=== PATIENT | male | born 1995 | race Caucasian/White ===

== ENCOUNTER 2017-02-20 20:01 | Inpatient (IN) | payer BC ==
[2017-02-20] MEDS ORDERED: SODIUM CHLORIDE 0.9% 1,000 ML IV STA ×2 (21:32)
[2017-02-20] MEDS ORDERED: IPRATROPIUM-ALBUTEROL 3 ML NEB INHALATION STA ×2 (21:34→23:34)
[2017-02-20] MEDS ORDERED: ACETAMINOPHEN TAB 500 MG TAB PO STA (21:34)
--- NOTE | 2017-02-20 21:37 | ED ---
SOB HPI - General Chief Complaint: Shortness of Breath Stated Complaint: Low O2 Time Seen by Provider: 02/20/17 21:26 Source: patient Mode of arrival: ambulatory Limitations: no limitations - History of Present Illness Initial Comments: This 21-year-old white male presents with mother the complaint of some shortness of breath. He states onset occurred last evening. He developed a cough with yellowish production. He is had occasional chest tightness as well. He has a T-max of 101. He is seen at the urgent care prior to arrival. They did an x-ray with unknown results. They also gave him a shot of Rocephin as well as 125 mg of Solu-Medrol IM and a breathing treatment. His oxygenation apparently was down to 88% and they recommended coming to the emergency department. They apparently gave him some Aleve this morning as well as a couple of albuterol breathing treatments at home. He denies any other complaints or modifying factors. He does have a history of childhood asthma but this has subsequently resolved. - Related Data Home Medications Medication Instructions Recorded Confirmed No Known Home Medications [No 02/20/17 02/20/17 Known Home Medications] Allergies Allergy/AdvReac Type Severity Reaction Status Date / Time No Known Allergies Allergy Verified 02/20/17 20:55 Review of Systems ROS Statement: Those systems with pertinent positive or pertinent negative responses have been documented in the HPI. ROS Other: All systems not noted in ROS Statement are negative. Past Medical History Past Medical History: No Reported History History of Any Multi-Drug Resistant Organisms: None Reported Past Surgical History: Ear Surgery Past Psychological History: No Psychological Hx Reported Smoking Status: Never smoker Past Alcohol Use History: None Reported Past Drug Use History: None Reported General Exam - General Exam Comments Initial Comments: GENERAL: The patient is well nourished and well hydrated. He is diaphoretic currently. VITAL SIGNS: Heart rate, blood pressure, respiratory rate reviewed as recorded in nurse's notes. EYES: Pupils are round and reactive. Extraocular movements are intact. No conjunctival / lid redness or swelling. ENT: No external evidence of injury, swelling, or ecchymosis. Airway is patent. Throat is clear. NECK: Nontender. No swelling or evidence of injury. No subcutaneous emphysema. Trachea is midline. No thyroid mass. HEART: Regular rate and rhythm. Good peripheral pulses. LUNGS/CHEST: Decreased aeration noted. No rales, rhonchi, or wheezes. No ecchymosis, subcutaneous emphysema, or tenderness. ABDOMEN: Abdomen soft without tenderness. No palpable masses or organomegaly. No peritoneal signs. No abdominal wall swelling or ecchymosis. EXTREMITIES: No extremity tenderness. Normal muscle tone and function. No thoracolumbar tenderness. NEUROLOGIC: Sensation is grossly intact. Cranial nerve exam reveals face is symmetrical, tongue is midline, speech is clear. SKIN: No abrasions or ecchymosis is noted. No induration or masses noted. PSYCHIATRIC: Alert and oriented. Appropriate behavior and judgment. Limitations: no limitations Course Vital Signs 02/20/17 02/20/17 02/20/17 20:43 21:01 21:32 Temperature 101.0 F H Pulse Rate 114 H 107 H 94 Respiratory 22 22 Rate Blood Pressure 120/64 151/79 135/71 O2 Sat by Pulse 91 L 94 L Oximetry 02/20/17 02/20/17 02/20/17 22:02 22:23 22:32 Temperature Pulse Rate 84 108 H 94 Respiratory Rate Blood Pressure 127/70 128/60 O2 Sat by Pulse 95 94 L Oximetry 02/20/17 02/20/17 02/20/17 23:02 23:26 23:27 Temperature 97.9 F Pulse Rate 96 100 Respiratory Rate Blood Pressure 129/68 O2 Sat by Pulse 95 Oximetry Medical Decision Making - Medical Decision Making The patient was seen and examined. All diagnostics were reviewed. His laboratory showed his white blood cell count elevated. The x-ray was read out per radiology is no acute process over upon my evaluation it appears that he may have a right middle lobe infiltrate/pneumonia. He does have a fever and received some Toradol as well as some Tylenol and does defervesce. He received multiple DuoNeb breathing treatments as well as some Levaquin intravenously. While in the room on 2 L of oxygen, his pulse ox does register down to 85% while sleeping and is 92% while awake. Is felt as though he is fairly hypoxic and would require admission for further treatment. Case is discussed with Dr. Villegas and he is agreeable with admission. - Lab Data Result diagrams: 02/20/17 21:11 02/20/17 21:11 Lab Results 02/20/17 02/20/17 02/20/17 Range/Units 21:11 21:11 23:00 WBC 16.3 H (4.0-11.0) k/uL RBC 5.51 (4.30-5.90) m/uL Hgb 16.3 (13.0-17.5) gm/dL Hct 48.5 (39.0-53.0) % MCV 88.1 (80.0-100.0) fL MCH 29.6 (25.0-35.0) pg MCHC 33.6 (31.0-37.0) g/dL RDW 13.8 (11.5-15.5) % Plt Count 220 (150-450) k/uL Neutrophils % 93 % Lymphocytes % 4 % Monocytes % 2 % Eosinophils % 0 % Basophils % 0 % Neutrophils # 15.2 H (1.3-7.7) k/uL Lymphocytes # 0.7 L (1.0-4.8) k/uL Monocytes # 0.3 (0-1.0) k/uL Eosinophils # 0.1 (0-0.7) k/uL Basophils # 0.0 (0-0.2) k/uL Sodium 137 (137-145) mmol/L Potassium 4.0 (3.5-5.1) mmol/L Chloride 103 (98-107) mmol/L Carbon Dioxide 20 L (22-30) mmol/L Anion Gap 14 mmol/L BUN 13 (9-20) mg/dL Creatinine 1.01 (0.66-1.25) mg/dL Est GFR (MDRD) Af Amer >60 (>60 ml/min/1.73 sqM) Est GFR (MDRD) Non-Af >60 (>60 ml/min/1.73 sqM) Glucose 153 H (74-99) mg/dL Calcium 9.8 (8.4-10.2) mg/dL Total Bilirubin 0.6 (0.2-1.3) mg/dL AST 23 (17-59) U/L ALT 40 (21-72) U/L Alkaline Phosphatase 66 (38-126) U/L Total Protein 6.8 (6.3-8.2) g/dL Albumin 4.3 (3.5-5.0) g/dL Urine Color Yellow Urine Appearance Clear (Clear) Urine pH 6.0 (5.0-8.0) Ur Specific [place] 1.009 (1.001-1.035) Urine Protein Negative (Negative) Urine Glucose (UA) Negative (Negative) Urine Ketones 1+ H (Negative) Urine Blood Negative (Negative) Urine Nitrite Negative (Negative) Urine Bilirubin Negative (Negative) Urine Urobilinogen <2.0 (<2.0) mg/dL Ur Leukocyte Esterase Negative (Negative) Disposition Clinical Impression: Pneumonia, Fever, Leukocytosis, Hypoxia Disposition: ADMITTED IP TO THIS HOSP Condition: Fair Referrals: None,Stated [Primary Care Provider] - 1-2 days Time of Disposition: 00:19 Decision Date: 02/21/17 Decision Time: 00:19
[2017-02-20 22:03] LABS: Basophils % (A) 0 %; CH 30.5; CHCM 34.8; Eosinophils # (A) 0.1 k/uL (0-0.7); Eosinophils % (A) 0 %; HCT 48.5 % (39.0-53.0); HDW 2.49; HGB 16.3 gm/dL (13.0-17.5); Luc # (Auto) 0.06; Luc % (Auto) 0; Lymphocytes # (A) 0.7 k/uL (1.0-4.8); Lymphocytes % (A) 4 %; MCH 29.6 pg (25.0-35.0); MCHC 33.6 g/dL (31.0-37.0); MCV 88.1 fL (80.0-100.0); Mean Platelet Volume 7.4; Monocytes # (A) 0.3 k/uL (0-1.0); Monocytes % (A) 2 %; Neutrophils # (A) 15.2 k/uL (1.3-7.7); Neutrophils % (A) 93 %; RBC 5.51 m/uL (4.30-5.90); RDW 13.8 % (11.5-15.5); WBC 16.3 k/uL (4.0-11.0); WBC (Perox) 16.89
[2017-02-20 22:20] LABS: ALT 40 U/L (21-72); AST 23 U/L (17-59); Alkaline Phosphatase 66 U/L (38-126); Anion Gap 14 mmol/L; Blood Urea Nitrogen 13 mg/dL (9-20); Calcium 9.8 mg/dL (8.4-10.2); Carbon Dioxide 20 mmol/L (22-30); Chloride 103 mmol/L (98-107); Glucose 153 mg/dL (74-99); Non-African American GFR(MDRD) >60 (>60 ml/min/1.73 sqM); Sodium 137 mmol/L (137-145); Total Bilirubin 0.6 mg/dL (0.2-1.3); Total Protein 6.8 g/dL (6.3-8.2)
--- NOTE | 2017-02-20 23:02 | XR ---
EXAMINATION TYPE: XR chest 2V DATE OF EXAM: 02/20/2017 COMPARISON: NONE HISTORY: Difficulty breathing TECHNIQUE: Frontal and lateral views of the chest are obtained. FINDINGS: Heart and mediastinum are normal. Lungs are clear. Diaphragm is normal. There are chest le ads. Bony thorax is intact. IMPRESSION: Normal chest
[2017-02-20 23:11] LABS: Appearance,Urine Clear (Clear); Bilirubin,Urine Negative (Negative); Glucose,Urine (UA) Negative (Negative); Ketones,Urine 1+ (Negative); Leukocyte Esterase,Urine Negative (Negative); Nitrite,Urine Negative (Negative); Protein,Urine Negative (Negative); Specific Gravity,Urine 1.009 (1.001-1.035); UA Billing (MACRO vs. MICRO) CHEM; Urobilinogen,Urine <2.0 mg/dL (<2.0)
[2017-02-21] MEDS ORDERED: LEVOFLOXACIN 750MG-D5W PMX 750 MG in DEXTROSE/WATER 1 150ML.BAG IVPB STA (00:19)
[2017-02-21] MEDS ORDERED: IPRATROPIUM-ALBUTEROL 3 ML NEB INHALATION PRN (00:20)
[2017-02-21] MEDS ORDERED: PNEUMONIA PROTOCOL UTILIZED 1 EACH MISC PO PRN (00:20)
[2017-02-21] MEDS ORDERED: ACETAMINOPHEN TAB 500 MG TAB PO PRN (00:22)
[2017-02-21] MEDS ORDERED: KETOROLAC 30 MG/ML 1 ML VIAL IVP PRN (00:23)
[2017-02-21] MEDS ORDERED: methylPREDNISolone SOD SUCCI 125 MG/2 ML VIAL IV STA (00:25)
[2017-02-21] MEDS ORDERED: NALOXONE 0.4 MG/ML 1 ML VIAL IV PRN (01:21)
[2017-02-21] MEDS ORDERED: ACETAMINOPHEN TAB 325 MG TAB PO PRN (01:21)
[2017-02-21] MEDS ORDERED: SODIUM CHLORIDE 0.9% 2,000 ML IV ONE (01:27)
--- NOTE | 2017-02-21 01:30 | P.HPIM ---
History of Present Illness H&P Date: 02/21/17 Chief Complaint: SOA, cough The patient is a 21-year-old male with a past history of asthma as a child with last exacerbation approximately 8 years ago who presents to the ER with chief complaint of sudden onset of shortness of breath productive cough and dyspnea over the last day and a half reports productive green sputum, and exertional dyspnea with subjective fevers chills or night sweats. He denies any recent travel or sick contacts he is a college student. He reports that his asthma has been in remission for several years to the point where he doesn' t even have a rescue inhaler that he uses at home. Apparently the patient presented to urgent care prior to being referred here where he was noted to be hypoxic on room air and he was given breathing treatments, placed on supplemental oxygen a dose of Rocephin and Solu-Medrol. He had a chest x-ray there results are unknown. Post treatment the patient's oxygenation desats to 85 % while asleep and is up to 92% while awake In the ER he had a repeat chest x-ray that showed no intrathoracic disease, his white count was elevated at 16 and his T-max was 101. Review of Systems All other 14 point review of systems are negative except per HPI Past Medical History Past Medical History: No Reported History History of Any Multi-Drug Resistant Organisms: None Reported Past Surgical History: Ear Surgery Past Psychological History: No Psychological Hx Reported Smoking Status: Never smoker Past Alcohol Use History: None Reported Past Drug Use History: None Reported Medications and Allergies Home Medications Medication Instructions Recorded Confirmed Type No Known Home Medications [No 02/20/17 02/20/17 History Known Home Medications] Allergies Allergy/AdvReac Type Severity Reaction Status Date / Time No Known Allergies Allergy Verified 02/20/17 20:55 Physical Exam Vitals: Vital Signs Temp Pulse Resp BP Pulse Ox 02/21/17 00:18 97.6 F 104 H 20 136/63 91 L 02/21/17 00:10 88 02/21/17 00:00 88 02/20/17 23:27 97.9 F 02/20/17 23:26 100 02/20/17 23:02 96 129/68 95 02/20/17 22:32 94 128/60 94 L 02/20/17 22:23 108 H 02/20/17 22:02 84 127/70 95 02/20/17 21:32 94 22 135/71 94 L 02/20/17 21:01 107 H 151/79 02/20/17 20:43 101.0 F H 114 H 22 120/64 91 L Intake and Output 02/20/17 02/20/17 02/21/17 14:59 22:59 06:59 Other: Weight 97.976 kg Patient Weight 02/21/17 06:59 Weight 97.976 kg Constitutional: No acute distress, conversant, pleasant, clammy sweaty Eyes: Anicteric sclerae, moist conjunctiva, no lid-lag, PERRLA ENMT: NC/AT,Oropharynx clear, no erythema, exudates Neck:Supple, FROM, no masses, or JVD, No carotid bruits; No thyromegaly Lungs: Diminished in the bases, Clear to auscultation, Clear to percussion, Normal respiratory effort, no accessory muscle use Cardiovascular: Heart regular in rate and rhythm, No murmurs, gallops, or rubs no peripheral edema Abdominal: Soft Nontender, nom distended, no guarding, no rebound or rigidity, Normoactive bowel sounds No hepatomegaly, No splenomegaly, No palpable mass No abdominal wall hernia noted Skin: Normal temperature, tone, texture, turgor, No induration No subcutaneous nodules, No rash, lesions, No ulcers Extremities:No digital cyanosis No clubbing, Pedal pulses intact and symmetrical Radial pulses intact and symmetrical Normal gait and station, No calf tenderness Psychiatric: Alert and oriented to person, place and time, Appropriate affect Intact judgement Neuro: Muscles Strength 5/5 in all 4 extremities, Sensation to light touch grossly present throughout, Cranial nerves II-XII grossly intact. No focal sensory deficits Results CBC & Chem 7: 02/20/17 21:11 02/20/17 21:11 Labs: Abnormal Lab Results - Last 24 Hours (Table) 02/20/17 02/20/17 02/20/17 Range/Units 21:11 21:11 23:00 WBC 16.3 H (4.0-11.0) k/uL Neutrophils # 15.2 H (1.3-7.7) k/uL Lymphocytes # 0.7 L (1.0-4.8) k/uL Carbon Dioxide 20 L (22-30) mmol/L Glucose 153 H (74-99) mg/dL Urine Ketones 1+ H (Negative) Assessment and Plan (1) Sepsis Status: Acute (2) Acute respiratory failure with hypoxia Status: Acute (3) Acute asthma exacerbation Status: Acute (4) Pneumonia Status: Acute Plan: The patient is a 21-year-old male that is admitted to the medical floor with sepsis secondary to presumptive pneumonia despite his chest x-ray bleeding clear, blood cultures will be checked urinalysis is pending we'll try to obtain sputum cultures will continue empiric IV treatment with IV Levaquin, systemic steroids and scheduled and when necessary bronchodilator breathing treatments. We will hydrate and repeat a chest x-ray to check to see if there is a underlying pneumonia. We'll check urine Legionella and strep and influenza. We'll continue to monitor his clinical course Time with Patient: Greater than 30
[2017-02-21] MEDS: SODIUM CHLORIDE 0.9% 1,000 ML IV SCH ×3 (02:52→17:57)
[2017-02-21] MEDS ORDERED: IPRATROPIUM-ALBUTEROL 3 ML NEB INHALATION SCH (04:00)
[2017-02-21 06:47] LABS: Basophils % (A) 0 %; CH 30.4; CHCM 33.6; Eosinophils % (A) 0 %; HCT 44.2 % (39.0-53.0); HDW 2.48; HGB 14.1 gm/dL (13.0-17.5); Luc # (Auto) 0.03; Luc % (Auto) 0; Lymphocytes # (A) 0.6 k/uL (1.0-4.8); Lymphocytes % (A) 7 %; MCV 90.7 fL (80.0-100.0); Mean Platelet Volume 7.1; Monocytes # (A) 0.1 k/uL (0-1.0); Monocytes % (A) 2 %; Neutrophils # (A) 7.4 k/uL (1.3-7.7); Neutrophils % (A) 91 %; RBC 4.87 m/uL (4.30-5.90); RDW 13.7 % (11.5-15.5); WBC 8.2 k/uL (4.0-11.0); WBC (Perox) 8.08
[2017-02-21 07:02] LABS: Anion Gap 7 mmol/L; Blood Urea Nitrogen 13 mg/dL (9-20); Calcium 8.7 mg/dL (8.4-10.2); Carbon Dioxide 21 mmol/L (22-30); Chloride 110 mmol/L (98-107); Glucose 139 mg/dL (74-99); Non-African American GFR(MDRD) >60 (>60 ml/min/1.73 sqM); Potassium 4.9 mmol/L (3.5-5.1); Sodium 138 mmol/L (137-145)
[2017-02-21] MEDS: methylPREDNISolone SOD SUCCI 125 MG/2 ML VIAL IV SCH ×4 (07:23→23:34)
[2017-02-21] MEDS: ENOXAPARIN 40 MG/0.4 ML SYRINGE SQ SCH (08:09)
--- NOTE | 2017-02-21 13:45 | P.PN ---
Progress Note - Text 21 year old male admitted for acute pneumonia. patient reports recent traveling by plane, he arrived over the weekend, he also admits to sick contact with his brother who got sinusitis. his symptoms started after he arrived to [place]. Reports pleuritic chest pain, trouble breathing and new onset productive cough. I reviewed patient CXR which appears to be normal with no infilterates. I reviewed EKG, and its suspicious for S in lead 1, Q wave in lead 3, and flat t wave in lead 3. given his above history , Im suspecting a possiblity of PE, I will check d dimer pending further recommendations. patient still drops his oxygen level to 90-91 on room air along with tachycardia , however, his lung exam continues to be clear
[2017-02-21 13:48] LABS: Aspergillus fumagatus IgE 0.95 kU/L; Cat Epith & Dander IgE 0.17 kU/L; Cladosporian herbarum IgE <0.10 kU/L; Dermato. farinae IgE <0.10 kU/L; Maple (Box Elder) IgE <0.10 kU/L; Orchard Grs(Cocksfoot) IgE <0.10 kU/L; Ragweed,Common IgE <0.10 kU/L
[2017-02-21] MEDS: LEVOFLOXACIN 750MG-D5W PMX 750 MG in DEXTROSE/WATER 1 150ML.BAG IVPB SCH (23:35)
[2017-02-22] MEDS: SODIUM CHLORIDE 0.9% 1,000 ML IV SCH ×3 (02:30→19:49)
[2017-02-22] MEDS: methylPREDNISolone SOD SUCCI 125 MG/2 ML VIAL IV SCH ×4 (06:03→23:08)
[2017-02-22] MEDS: ENOXAPARIN 40 MG/0.4 ML SYRINGE SQ SCH (07:49)
--- NOTE | 2017-02-22 08:02 | XR ---
EXAMINATION TYPE: XR chest 2V DATE OF EXAM: 02/22/2017 COMPARISON: Chest x-ray from 2 days ago. HISTORY: History of asthma and prior pneumonia with shortness of breath. TECHNIQUE: Frontal and lateral views of the chest are obtained. FINDINGS: Somewhat low lung volumes redemonstrated. There is no focal air space opacity, pleural eff usion, or pneumothorax seen. The cardiac silhouette size is within normal limits. The osseous stru ctures are intact. IMPRESSION: No suspicious acute pulmonary process. No significant change from prior.
[2017-02-22 10:03] LABS: Basophils % (A) 0 %; CH 29.3; CHCM 32.1; Eosinophils % (A) 0 %; HCT 46.1 % (39.0-53.0); HDW 2.52; HGB 15.3 gm/dL (13.0-17.5); Luc # (Auto) 0.07; Luc % (Auto) 0; Lymphocytes # (A) 1.2 k/uL (1.0-4.8); Lymphocytes % (A) 7 %; MCH 30.4 pg (25.0-35.0); MCHC 33.1 g/dL (31.0-37.0); MCV 91.6 fL (80.0-100.0); Mean Platelet Volume 7.3; Monocytes # (A) 0.5 k/uL (0-1.0); Monocytes % (A) 3 %; Neutrophils # (A) 17.2 k/uL (1.3-7.7); Neutrophils % (A) 90 %; RBC 5.03 m/uL (4.30-5.90); RDW 12.9 % (11.5-15.5)
[2017-02-22 10:32] LABS: Anion Gap 13 mmol/L; Blood Urea Nitrogen 11 mg/dL (9-20); Calcium 9.2 mg/dL (8.4-10.2); Carbon Dioxide 20 mmol/L (22-30); Chloride 109 mmol/L (98-107); Glucose 135 mg/dL (74-99); Non-African American GFR(MDRD) >60 (>60 ml/min/1.73 sqM); Potassium 3.7 mmol/L (3.5-5.1); Sodium 142 mmol/L (137-145)
--- NOTE | 2017-02-22 16:55 | P.PN ---
Subjective Principal diagnosis: acute asthmatic bronchitis A 21 y.o WM visiting from [place]. He presented with shortness of breath and cough with hypoxemia. He was admitted with asthma attack exacerbation with infection however his chest x-ray 2 done and were negative for any infiltrate. He feels a lot better without any acute cough or shortness of breath he denied chest pain dizziness or palpitations no cough or expectoration or hemoptysis no other complaints offered I discussed this case with his mother and planning discharge in a.m. Systemic review of [employer] genitourinary cardiac musculoskeletal and GI systems were negative for any acute complaints Objective - Vital Signs Vital signs: Vital Signs Temp 96.5 F L 02/22/17 15:00 Pulse 86 02/22/17 15:00 Resp 16 02/22/17 15:00 BP 111/58 02/22/17 15:00 Pulse Ox 93 L 02/22/17 15:00 Intake & Output 02/21/17 02/22/17 02/22/17 18:59 06:59 18:59 Intake Total 200 700 Balance 200 700 Intake: Intake, IV Titration 200 Amount Sodium Chloride 0.9% 1, 200 000 ml @ 120 mls/hr IV . Q8H20M [facility] Rx#:[id number] Oral 700 Other: Voiding Method Toilet Toilet # Voids 1 2 # Bowel Movements 1 - Constitutional General appearance: Present: average body habitus, cooperative, no acute distress - EENT Eyes: Present: anicteric sclerae, EOMI, PERRLA, dentition normal, normal appearance ENT: Present: hearing grossly normal, normal oropharynx. Absent: thrush, tonsillar exudates, tonsillar swelling - Neck Neck: Absent: lymphadenopathy, normal ROM, other, rigidity, stridor, thyromegaly Carotids: bilateral: upstroke normal, bruit absent Thyroid: negative: normal size, enlarged, firm, nodule - Respiratory Respiratory: bilateral: CTA, rhonchi, prolonged expiration, negative: diminished , dullness, wheezing, prolonged inspiration - Cardiovascular Rhythm: regular Heart sounds: normal: S1, S2 Abnormal Heart Sounds: Absent: systolic murmur, diastolic murmur, rub, S3 Gallop , S4 Gallop, click, other - Gastrointestinal General gastrointestinal: Present: normal bowel sounds, soft. Absent: absent bowel sounds, decreased bowel sounds, distended, hepatomegaly, hyperactive bowel sounds, organomegaly, rigid, scaphoid, splenomegaly, tenderness, umbilical hernia, ventral hernia - Integumentary Integumentary: Absent: calor, cellulitis, cyanotic, decreased turgor, flushed, jaundiced, normal, normal turgor, pale, rash, ulcer - Neurologic Neurologic: Present: CNII-XII intact, focal deficits - Musculoskeletal Musculoskeletal: Present: gait normal, strength equal bilaterally. Absent: generalized weakness, right sided weakness, left sided weakness - Psychiatric Psychiatric: Present: A&O x's 3, appropriate affect, intact judgment & insight - Allied health notes Allied health notes reviewed: nursing - Labs CBC & Chem 7: 02/22/17 09:06 02/22/17 09:06 Labs: Abnormal Lab Results - Last 24 Hours (Table) 02/22/17 02/22/17 Range/Units 09:06 09:06 WBC 19.0 H (4.0-11.0) k/uL Neutrophils # 17.2 H (1.3-7.7) k/uL Chloride 109 H (98-107) mmol/L Carbon Dioxide 20 L (22-30) mmol/L Glucose 135 H (74-99) mg/dL Microbiology - Last 24 Hours (Table) 02/20/17 21:11 Blood Culture - Preliminary Blood No Growth after 24 hours - Imaging and Cardiology Chest x-ray: report reviewed, image reviewed Assessment and Plan (1) Acute asthma exacerbation Narrative/Plan: Negative CXR contginue iv levaquin Status: Acute (2) Acute respiratory failure with hypoxia Narrative/Plan: resolved, normal o2 sat% continue AB's, bronchodilater therapy and steroids Status: Acute (3) Leukocytosis Narrative/Plan: WBC's = 11893 secondary to steroid repeat in amtherapy Status: Acute (4) Sepsis Narrative/Plan: resolved hypoxemia resolved cxr is negativev x 2 Status: Acute (5) Acute bronchiolitis Narrative/Plan: cxr is negative , no pneumonia currently on Levaquin respondind well Plan d/c in am Status: Acute Plan: plan disgharge in am Time with Patient: Less than 30
[2017-02-22] MEDS: LEVOFLOXACIN 750MG-D5W PMX 750 MG in DEXTROSE/WATER 1 150ML.BAG IVPB SCH (23:08)
[2017-02-23] MEDS: SODIUM CHLORIDE 0.9% 1,000 ML IV SCH (06:24)
[2017-02-23] MEDS: methylPREDNISolone SOD SUCCI 125 MG/2 ML VIAL IV SCH ×2 (06:24→12:26)
[2017-02-23] MEDS: ENOXAPARIN 40 MG/0.4 ML SYRINGE SQ SCH (08:53)
[2017-02-23 14:51] VITALS: BP 133/70; PULSE 75; RESP 16; TEMP 97
[2017-02-23] MEDS ORDERED: ALBUTEROL INHALER 60 PUFF/8 GM INHALER INHALATION PRN (15:33)
--- NOTE | 2017-02-23 15:45 | P.DS ---
Providers Date of admission: 02/21/17 00:20 Expected date of discharge: 02/23/17 Attending physician: Chapincito Villegas MD Primary care physician: Stated None - Discharge Diagnosis(es) (1) Acute asthma exacerbation Admitted for increasing SOB x 1 day duration , no preceeded URTI Had fever , leukocytosis, hypoxia with early sepsis and abn chest exam with Asthmatic exacerbation XCR was negative Responded to O2 , Levaquin and bronchodilater therapy and stweroids which raised his WBC count Blood c/s : negative Today he was asymptomatic with clear chest No Resp distress Stable to go home Current Visit: Yes Status: Acute Priority: High Onset Date: ~02/21/17 (2) Acute respiratory failure with hypoxia Current Visit: Yes Status: Acute Priority: High Onset Date: ~02/21/17 (3) Leukocytosis due to iv steroids Current Visit: Yes Status: Acute Priority: High Onset Date: ~02/21/17 (4) Sepsis early with fever ,tachycardia hypoxemia Resolved Current Visit: Yes Status: Acute Priority: High Onset Date: ~02/21/17 (5) Acute bronchiolitis on AB;s with good response XCR x 2 : no pneumonia Current Visit: Yes Status: Acute Priority: High Onset Date: ~02/21/17 Patient Condition at Discharge: Fair Plan - Discharge Summary New Discharge Prescriptions: No Action No Known Home Medications [No Known Home Medications] Discharge Medication List No Known Home Medications [No Known Home Medications] 02/20/17 [History] Follow up Appointment(s)/Referral(s): None,Stated [Primary Care Provider] - 1 Week Patient Instructions/Handouts: Asthma (DC) Activity/Diet/Wound Care/Special Instructions: Regular diet. Limited activity till follow up. Discharge Disposition: HOME SELF-CARE
[2017-02-23] MEDS ORDERED: LEVOFLOXACIN 750 MG TAB PO SCH (21:00)
[2017-02-24] MEDS ORDERED: methylPREDNISolone 4 MG TAB TAPER PO SCH (09:00)
--- NOTE | 2017-02-27 12:53 | CDI ---
In responding to this query, please exercise your independent professional judgment. The [facility] Coding Staff and Clinical Documentation Specialists appreciate your assistance in clarifying documentation, maintaining compliance with coding guidelines, accurately documenting patients condition and capturing severity of illness. The fact that a question is asked does not imply that any particular answer is desired or expected. Communication forms are a method of clarifying documentation and are not made part of the Legal Health Record. Thank you in advance for your clarification. Last Revision, July 2015 Nadine Carter [address] [place] [address] Documentation Clarification Form Date: 02/27/2017 12:30:00 PM From: Janina Turner Phone: Admit Date: 02/21/2017 12:20:00 AM Patient Name: Jose E Schmidt I Visit Number: [id number] Discharge Date: Dr. Patrice Pendleton Acute asthma exacerbation is documented in the H&P, progress notes and discharge summary. Patient history/risk factors: Patient has a history of asthma as a child with last exacerbation approxiemately 8 years ago. Clinical Indicators: Sudden shortness of breath, productive cough and dyspnea. Patient reported to urgent care prior to admission and was hypoxic and was given breathing treatments, a does of Rocephin and Solu-Medrol. Radiology: Chest x-ray 02/20: Normal chest. Chest x-ray 02/22: No suspicious acute pulmonary process. No significant change from prior. Vital Signs: T. 101.0, P. 97, R. 22, BP 126/65, Pulse ox. 91 Other Clinical Indicators: Patient also had acute bronchiolitis per discharge summary. Treatment: Duoneb treatments, IV Solu-Medrol In your professional opinion, can you please further specify the following, if known? Severity Mild intermittent Mild persistent Moderate persistent Severe persistent Other, please specify ____ Unable to determine Form or Type Cough variant Childhood Exercise induced bronchospasm Extrinsic allergic Idiosyncratic Intrinsic nonallergic Late-onset Mixed Other, please specify Unable to determine Please document in your discharge summary in order to capture severity of illness and risk of mortality. Include clinical findings that support your diagnosis. FYI: Press F11 to launch patient chart. If you have a question about this query, please contact Polly Tinoco coding clerk at [phone] between 8am and 5pm. MTDD
[2017-02-27 13:58] LABS: S.pneumoniae Serotype 1 (1) 8.5 mcg/mL (>=2.3); S.pneumoniae Serotype 10A (34) 1.1 mcg/mL (>=2.9); S.pneumoniae Serotype 12F (12) 0.1 mcg/mL (>=0.6); S.pneumoniae Serotype 14 (14) 1.2 mcg/mL (>=7.0); S.pneumoniae Serotype 15B (54) 0.6 mcg/mL (>=3.3); S.pneumoniae Serotype 18C (56) 0.2 mcg/mL (>=3.3); S.pneumoniae Serotype 19A (57) 0.8 mcg/mL (>=17.1); S.pneumoniae Serotype 19F (19) 8.6 mcg/mL (>=15.0); S.pneumoniae Serotype 2 (2) 1.9 mcg/mL (>=1.0); S.pneumoniae Serotype 20 (20) 0.2 mcg/mL (>=1.3); S.pneumoniae Serotype 22F (22) 3.4 mcg/mL (>=7.2); S.pneumoniae Serotype 23F (23) 6.8 mcg/mL (>=8.0); S.pneumoniae Serotype 3 (3) 0.5 mcg/mL (>=1.8); S.pneumoniae Serotype 4 (4) 0.3 mcg/mL (>=0.6); S.pneumoniae Serotype 5 (5) <0.3 mcg/mL (>=10.7); S.pneumoniae Serotype 6B (26) 1.4 mcg/mL (>=4.7); S.pneumoniae Serotype 8 (8) 0.3 mcg/mL (>=2.9); S.pneumoniae Serotype 9N (9) 1.3 mcg/mL (>=9.2); S.pneumoniae Serotype 9V (68) 4.1 mcg/mL (>=2.6)
== END 2017-02-23 16:46 | disposition home or self-care (01) | DRG 871 ==
LOC: EC 20:01 → 4MS4W 02-21 00:20
PROVIDERS: ADMIT Family Medicine; ATTEND Family Medicine
DX: A41.9 Sepsis, unspecified organism (principal); J96.01 Acute respiratory failure with hypoxia; J21.9 Acute bronchiolitis, unspecified; J45.901 Unspecified asthma with (acute) exacerbation; D72.829 Elevated white blood cell count, unspecified; T38.0X5A Adverse effect of glucocorticoids and synthetic analogues, initial encounter
CPT/HCPCS: 36415; 71020; 80048; 80053; 81003; 82785; 83605; 85025; 85379; 86003; 86317; 87040; 87449; 87502; 93005; 94640; 94760; 96361; 96365; 96366; 96372; 96375; 96376; 99285

== ENCOUNTER 2017-12-22 21:40 | Emergency (ER) | payer BC, OTHER ==
[2017-12-22 22:19] VITALS: RESP 18
--- NOTE | 2017-12-22 22:55 | ED ---
General Adult HPI - General Chief complaint: Wound/Laceration Stated complaint: Finger laceration Time Seen by Provider: 12/22/17 22:35 Source: patient Mode of arrival: ambulatory - History of Present Illness Initial comments: 21-year-old male presenting with laceration to the left second digit. Patient states he was making hollowpoint bullets when he missed and struck his finger with a knife. States since then he's been having pain and bleeding. States he is right-handed and his last tetanus shot was in April. Denies any other injury. - Related Data Home Medications Medication Instructions Recorded Confirmed Albuterol Inhaler [Ventolin Hfa 1 - 2 puff INHALATION RT-Q6H PRN 12/22/17 Inhaler] Levocetirizine Dihydrochloride 5 mg PO HS 12/22/17 12/22/17 [Xyzal] Previous Rx's Medication Instructions Recorded Ibuprofen [Motrin] 600 mg PO Q8HR PRN #30 tab 12/23/17 Allergies Allergy/AdvReac Type Severity Reaction Status Date / Time No Known Allergies Allergy Verified 12/22/17 22:41 Review of Systems ROS Statement: Those systems with pertinent positive or pertinent negative responses have been documented in the HPI. Review of Systems Constitutional: Denies fever, chills Eyes: Denies change in vision, Denies pain Ears, nose, mouth, throat: Denies headaches, Denies sore throat Cardiovascular: Denies chest pain. Denies palpitations Respiratory: Denies shortness of breath, Denies cough Gastrointestinal: Denies abdominal pain. Denies nausea, vomiting, diarrhea. Genitourinary: Denies hematuria, Denies infections Musculoskeletal: Denies pain, Denies swelling Integumentary: Positive wound Neurological: Denies headache, focal weakness, focal numbness Psychiatric: Denies anxiety, Denies depression Hematologic/Lymphatic: Denies easy bleeding or bruising ROS Other: All systems not noted in ROS Statement are negative. Past Medical History Past Medical History: Asthma, Pneumonia Additional Past Medical History / Comment(s): Childhood asthma, mononucleosis, hypoglycemia, frequent migraines. History of Any Multi-Drug Resistant Organisms: None Reported Past Surgical History: Ear Surgery Additional Past Surgical History / Comment(s): Bilateral myringotomy/tubes. Past Anesthesia/Blood Transfusion Reactions: No Reported Reaction Past Psychological History: No Psychological Hx Reported Smoking Status: Never smoker Past Alcohol Use History: None Reported Past Drug Use History: None Reported - Past Family History Mother Family Medical History: Asthma, Hypertension Father Family Medical History: Hypertension Additional Family Medical History / Comment(s): Father in a work related MVA. General Exam - General Exam Comments Initial Comments: General: Awake, alert, No acute Distress HENT: Normocephalic. Atraumatic Eyes: PERRL. EOMI. No scleral icterus. No injected conjunctiva Neck: Full ROM Chest/Lungs: Clear to auscultation bilaterally. No wheezing, rhonchi, or rales Cardiac: Regular rate, rhythm. No murmurs or rubs Abdomen/GI: Soft, nontender, nondistended. No rebound, guarding, or rigidity. Musculoskeletal: Full ROM Skin: Warm, dry. 1 cm avulsion laceration to the medial aspect of the left second digit lateral to the nail. Mild bleeding. Sensation intact. Full range of motion. Neurologic: A/Ox3, no weakness, no sensory deficit, no abnormal gait, no coordination deficit Course Vital Signs 12/22/17 12/23/17 22:14 00:25 Temperature 98.8 F 98.1 F Pulse Rate 68 66 Respiratory 18 18 Rate Blood Pressure 148/81 145/86 O2 Sat by Pulse 98 98 Oximetry Procedures - Laceration Laceration #1 Indication: laceration Site: upper extremity Size (cm): 1 Description: flap Depth: simple, single layer Anesthetic Used: benzocaine 0.25% Anesthesia Technique: local infiltration Pre-repair: irrigated extensively Size of Sutures: 5-0 Number of Sutures: 2 Technique: simple, interrupted Patient Tolerated Procedure: well - Nerve Block Consent Obtained: verbal consent Time Out Performed: Yes Local Anesthetic Used: Marcaine 0.5% Side: left Nerve Blocks: radial Procedure Successful: Yes Complications: pain with procedure Patient Tolerated Procedure: well Medical Decision Making - Medical Decision Making 21-year-old male presenting with laceration to left finger. Initial exam the patient is awake, alert, no acute distress. VSS. Laceration itself was not deep and was more of a flap on the medial aspect of the finger. There is no evidence of foreign body was not deep enough to have a hidden foreign body.. Patient's tetanus is up-to-date. 2 sutures were placed to close the flap over the wound area. No indication for antibiotics. He was instructed to return the emergency Department or see his primary Care physician in 7-10 days for suture removal.No further emergent workup indicated. The patient was given return to ED instructions. They were instructed to follow up with their primary care provider. Stable for discharge at this time. Disposition Clinical Impression: Laceration of left index finger Disposition: HOME SELF-CARE Condition: Good Instructions: Care For Your Stitches (ED), Laceration (ED) Additional Instructions: Follow-up with her primary care physician of this department in 7-10 days for suture removal. If any foul-smelling drainage or fever occurs return to the emergency department. Prescriptions: Ibuprofen [Motrin] 600 mg PO Q8HR PRN #30 tab PRN Reason: Pain Is patient prescribed a controlled substance at d/c from ED?: No Referrals: None,Stated [Primary Care Provider] - 1-2 days Bart Hennessy MD [STAFF PHYSICIAN] - 1-2 days
[2017-12-23 00:26] VITALS: BP 145/86; PULSE 66; TEMP 98.1
== END 2017-12-23 00:25 | disposition home or self-care (01) ==
LOC: EC 21:40
DX: S61.211A Laceration without foreign body of left index finger without damage to nail, initial encounter (principal); J45.909 Unspecified asthma, uncomplicated; Z79.899 Other long term (current) drug therapy; W26.0XXA Contact with knife, initial encounter; Y93.89 Activity, other specified
CPT/HCPCS: 12001; 99282

== ENCOUNTER 2022-05-04 22:52 | Emergency (ER) | payer OTHER ==
[2022-05-04 23:21] VITALS: TEMP 98.4
[2022-05-05] MEDS ORDERED: FLUORESCEIN STRIPS 1 MG STRIP BOTH EYES ONE (01:17)
[2022-05-05] MEDS ORDERED: PROPARACAINE 0.5% OPHTH DROPS 15 ML BTL BOTH EYES STA (01:17)
[2022-05-05] MEDS ORDERED: SULFACETAMIDE SOD 10% OPHTH DROPS 15 ML BTL BOTH EYES ONE (01:17)
--- NOTE | 2022-05-05 02:00 | ED ---
Eye Problem HPI - General Chief complaint: Allergic Reaction Stated complaint: allergic reaction, carb pillowcase cleaner in eyes Time Seen by Provider: 05/05/22 00:57 Source: patient, family, RN notes reviewed Mode of arrival: ambulatory Limitations: no limitations - History of Present Illness Initial comments: This is a 26-year-old male who presents to the emergency department for eye problems. When he was at work, he was cleaning out a car, and when he was doing work on the car the carb pillowcase cleaner accidentally shot up and hit him in the face and both of his eyes. He tried rinsing his eyes, but states that he had difficulty with this due to his greasy hands. Reports itching and pain to the eyes as well as blurring of the vision. He felt like his face was swollen initially, however this has since resolved. Denies any fevers, chills, sore throat, cough, dyspnea, chest pain, palpitations, abdominal pain, nausea, vomiting, diarrhea, back pain, or headaches. MD chief complaint: eye pain, vision change Location: both eyes Place: work If Injury: chemical exposure Eye Symptoms: burning, pain, itching, blurry vision Associated Symptoms: none Treatments Prior to Arrival: irrigated eye - Related Data Home Medications Medication Instructions Recorded Confirmed Albuterol Inhaler [Ventolin Hfa 1 - 2 puff INHALATION RT-Q6H PRN 12/22/17 12/22/17 Inhaler] Levocetirizine Dihydrochloride 5 mg PO HS 12/22/17 12/22/17 [Xyzal] Previous Rx's Medication Instructions Recorded Ibuprofen [Motrin] 600 mg PO Q8HR PRN #30 tab 12/23/17 Allergies Allergy/AdvReac Type Severity Reaction Status Date / Time No Known Allergies Allergy Verified 05/04/22 23:21 Review of Systems ROS Statement: Those systems with pertinent positive or pertinent negative responses have been documented in the HPI. ROS Other: All systems not noted in ROS Statement are negative. Past Medical History Past Medical History: Asthma, Pneumonia Additional Past Medical History / Comment(s): Childhood asthma, mononucleosis, hypoglycemia, frequent migraines. History of Any Multi-Drug Resistant Organisms: None Reported Past Surgical History: Ear Surgery Additional Past Surgical History / Comment(s): Bilateral myringotomy/tubes. Past Anesthesia/Blood Transfusion Reactions: No Reported Reaction Past Psychological History: No Psychological Hx Reported Smoking Status: Current every day smoker, Vaper Past Alcohol Use History: None Reported Past Drug Use History: None Reported - Past Family History Mother Family Medical History: Asthma, Hypertension Father Family Medical History: Hypertension Additional Family Medical History / Comment(s): Father in a work related MVA. General Exam Limitations: no limitations General appearance: alert, in no apparent distress Head exam: Present: atraumatic, normocephalic, normal inspection Eye exam: Present: PERRL, EOMI, conjunctival injection, other (No lesions or erythema to the eyelids.). Absent: periorbital swelling, periorbital tenderness Pupils: Present: normal accommodation Respiratory exam: Present: normal lung sounds bilaterally. Absent: respiratory distress, wheezes, rales, rhonchi, stridor Cardiovascular Exam: Present: regular rate, normal rhythm, normal heart sounds. Absent: systolic murmur, diastolic murmur, rubs, gallop, clicks Neurological exam: Present: alert, oriented X3, CN II-XII intact Psychiatric exam: Present: normal affect, normal mood Skin exam: Present: warm, dry, intact, normal color. Absent: rash Course Vital Signs 05/04/22 05/05/22 23:13 03:20 Temperature 98.4 F Pulse Rate 77 88 Respiratory 18 14 Rate Blood Pressure 140/89 143/89 O2 Sat by Pulse 99 Oximetry Medical Decision Making - Medical Decision Making This is a 26-year-old male who presents to the emergency department for chemical constantino to the eyes. Both of his eyes were irrigated with a liter of normal saline via Sixto lens. Patient noted significant symptomatic relief following irrigation. PH strips were used following irrigation and found to be approximately 7.0. He was given sulfacetamide eyedrops in the emergency department, and advised to use 2 drops in both eyes 4 times daily for 5 days. Advised ibuprofen and Tylenol for pain relief. Information for ophthalmology follow-up was provided as well. Return precautions reviewed in depth, the patient is instructed to return to the emergency department with any new, worsening, or concerning symptoms. Patient verbalized understanding. This case was discussed in detail with the attending ED physician. Presentation, findings, and treatment plan discussed in detail as well. Disposition Clinical Impression: Chemical burn of left eye, Chemical burn of right eye Disposition: HOME SELF-CARE Instructions (If sedation given, give patient instructions): Chemical Eye Constantino (ED) Additional Instructions: Return to the emergency department with any new, worsening, or concerning symptoms. Use the eye drops as 2 drops in both eyes 4 times daily for 5 days. Alternate with ibuprofen and Tylenol for pain relief. Contact ophthalmology as listed below for a follow-up appointment. Follow up with your primary care provider in 1-2 days. Is patient prescribed a controlled substance at d/c from ED?: No Referrals: [facility],Clinic [Primary Care Provider] - 1-2 days Xi Howell MD [STAFF PHYSICIAN] - 1-2 days
[2022-05-05 03:20] VITALS: BP 143/89; PULSE 88; RESP 14
== END 2022-05-05 03:20 | disposition home or self-care (01) ==
LOC: EC 22:52
DX: T26.92XA Corrosion of left eye and adnexa, part unspecified, initial encounter (principal); T26.91XA Corrosion of right eye and adnexa, part unspecified, initial encounter; T65.91XA Toxic effect of unspecified substance, accidental (unintentional), initial encounter; J45.909 Unspecified asthma, uncomplicated; F17.200 Nicotine dependence, unspecified, uncomplicated; F17.290 Nicotine dependence, other tobacco product, uncomplicated
CPT/HCPCS: 99283

== ENCOUNTER 2022-06-14 12:59 | Emergency (ER) | payer OTHER ==
[2022-06-14 13:19] VITALS: RESP 18
--- NOTE | 2022-06-14 14:42 | XR ---
EXAMINATION TYPE: XR chest 2V DATE OF EXAM: 06/14/2022 2:33 PM COMPARISON: Chest radiographs from 02/22/2017. TECHNIQUE: XR chest 2V Frontal and lateral views of the chest. CLINICAL INDICATION:Male, 26 years old with history of Cough; FINDINGS: Lungs/Pleura: There is no evidence of pleural effusion, focal consolidation, or pneumothorax. Pulmonary vascularity: Unremarkable. Heart/mediastinum: Cardiomediastinal silhouette is unremarkable. Musculoskeletal: No acute osseous pathology. IMPRESSION: No acute cardiopulmonary disease/process.
--- NOTE | 2022-06-14 14:57 | ED ---
URI HPI - General Chief Complaint: Upper Respiratory Infection Stated Complaint: coughing up blood Time Seen by Provider: 06/14/22 13:58 Source: patient, RN notes reviewed Mode of arrival: ambulatory Limitations: no limitations - History of Present Illness Initial Comments: This is a 26-year-old male who presents to the emergency department for coughing. States that this started 2 weeks ago and has persisted. Yesterday when he was coughing, he noticed a couple of spots of blood in the sink. This happened a few times and has since stopped. Denies any associated fevers, chest pain, or shortness of breath. He states that he does vape on a daily basis. Denies any fevers, chills, sore throat, dyspnea, chest pain, palpitations, abdominal pain, nausea, vomiting, diarrhea, back pain, or headaches. MD Complaint: cough, nasal congestion Onset/Timin -: week(s) - Related Data Home Medications Medication Instructions Recorded Confirmed Albuterol Inhaler [Ventolin Hfa 1 - 2 puff INHALATION RT-Q6H PRN 12/22/17 0 12/22/17 Inhaler] Levocetirizine Dihydrochloride 5 mg PO HS 12/22/17 12/22/17 [Xyzal] Previous Rx's Medication Instructions Recorded Ibuprofen [Motrin] 600 mg PO Q8HR PRN #30 tab 12/23/17 Azithromycin [Zithromax] 250 mg PO DIRECTED 5 Days #6 tab 06/14/22 Promethazine/Dextromethorphan 5 ml PO Q4-6H PRN #473 ml 06/14/22 [Promethazine-Dm Syrup] predniSONE 50 mg PO DAILY 5 Days #5 tab 06/14/22 Allergies Allergy/AdvReac Type Severity Reaction Status Date / Time meloxicam Allergy Anaphylaxis Verified 06/14/22 13:20 Review of Systems ROS Statement: Those systems with pertinent positive or pertinent negative responses have been documented in the HPI. ROS Other: All systems not noted in ROS Statement are negative. Past Medical History Past Medical History: Asthma, Pneumonia Additional Past Medical History / Comment(s): Childhood asthma, mononucleosis, hypoglycemia, frequent migraines. History of Any Multi-Drug Resistant Organisms: None Reported Past Surgical History: Ear Surgery Additional Past Surgical History / Comment(s): Bilateral myringotomy/tubes. Past Anesthesia/Blood Transfusion Reactions: No Reported Reaction Past Psychological History: Anxiety, Depression Smoking Status: Current every day smoker, Vaper Past Alcohol Use History: None Reported Past Drug Use History: None Reported - Past Family History Mother Family Medical History: Asthma, Hypertension Father Family Medical History: Hypertension Additional Family Medical History / Comment(s): Father in a work related MVA. General Exam Limitations: no limitations General appearance: alert, in no apparent distress Head exam: Present: atraumatic, normocephalic, normal inspection Eye exam: Present: normal appearance, PERRL, EOMI. Absent: scleral icterus, conjunctival injection, periorbital swelling ENT exam: Present: normal oropharynx, mucous membranes moist, TM's normal bilaterally, normal external ear exam Respiratory exam: Present: normal lung sounds bilaterally. Absent: respiratory distress, wheezes, rales, rhonchi, stridor Cardiovascular Exam: Present: regular rate, normal rhythm, normal heart sounds. Absent: systolic murmur, diastolic murmur, rubs, gallop, clicks Neurological exam: Present: alert, oriented X3, CN II-XII intact Psychiatric exam: Present: normal affect, normal mood Skin exam: Present: warm, dry, intact, normal color. Absent: rash Course Vital Signs 06/14/22 06/14/22 13:16 15:20 Temperature 98.2 F 98.4 F Pulse Rate 105 H 78 Respiratory 18 18 Rate Blood Pressure 133/81 128/77 O2 Sat by Pulse 100 98 Oximetry Medical Decision Making - Medical Decision Making This is a 26-year-old male who presents to the emergency department for a cough. Was pt. sent in by a medical professional or institution? @ -No Did you speak to anyone other than the patient for history? @ -No Did you review nursing and triage notes? @ -Agree, accurate with regards to the patient's symptoms. Were old charts reviewed? @ -No Differential Diagnosis? @ -Influenza, Covid, allergic rhinitis, GERD, pneumonia, bronchitis, COPD, viral pharyngitis, streptococcal pharyngitis, this is not meant to be an all- inclusive list. X-rays interpreted by me (1pt min.)? @ --Chest x-ray obtained, my interpretation identifies no localized consolidations or infiltrates. What testing was considered but not performed? (CT, X-rays, U/S, labs)? Why? @ -None What meds were considered but not given? Why? @ -None Did you discuss the management of the patient with other professionals? @ -No Did you reconcile home meds? @ -No Was smoking cessation discussed for >3mins.? @ -No Was critical care preformed (if so, how long)? @ -No Were there social determinants of health that impacted care today? How? (Homelessness, low income, unemployed, alcoholism, drug addiction, transportation, low edu. Level, literacy, decrease access to med. care, snf, rehab)? @ -No Was there de-escalation of care discussed even if they declined? (Discuss DNR or withdrawal of care, Hospice)? @ -No What co-morbidities impacted this encounter? (DM, HTN, Smoking, COPD, CAD, Cancer, CVA, Hep., AIDS, mental health diagnosis, sleep apnea, morbid obesity)? @ -Vaping, hx of asthma Was patient admitted / discharged? @ -Discharged. Chest x-ray obtained revealing no acute abnormalities. Patient negative for Covid, influenza, and RSV. Advised that the small tinge of blood is likely from all of the coughing that he has been doing, eventually causing irritation. Because he is not coughing up large amounts of blood and because this has since resolved, no further workup in this regard is necessary at this time. Given that symptoms have been present for a week at this point, will go ahead and treatment him with a course of antibiotics. Prescription for Z-Walter provided with dosing instructions reviewed. Additionally, for symptomatic management, rx for prednisone and promethazine DM cough syrup provided with dosing instructions reviewed. He is advised that the cough medication can be sedating and he should take it at night until he knows it affects him. Undiagnosed new problem with uncertain prognosis? @ -None Drug Therapy requiring intensive monitoring for toxicity (Heparin, Nitro, Insulin, Cardizem)? @ -None Were any procedures done? @ -None Diagnosis/symptom? @ -Bronchitis Acute, or Chronic, or Acute on Chronic? @ -Acute Uncomplicated (without systemic symptoms) or Complicated (systemic symptoms)? @ -Uncomplicated Side effects of treatment? @ -None Exacerbation, Progression, or Severe Exacerbation] @ -Not applicable Poses a threat to life or bodily function? @ -No Return precautions reviewed in depth, the patient is instructed to return to the emergency department with any new, worsening, or concerning symptoms. Patient verbalized understanding. This case was discussed in detail with the attending ED physician, Dr. Segura. Presentation, findings, and treatment plan discussed in detail as well. - Lab Data Lab Results 06/14/22 Range/Units 14:07 Influenza Type A (PCR) Not Detected (Not Detectd) Influenza Type B (PCR) Not Detected (Not Detectd) RSV (PCR) Not Detected (Not Detectd) SARS-CoV-2 (PCR) Not Detected (Not Detectd) - Radiology Data Radiology results: report reviewed, image reviewed Disposition Clinical Impression: Bronchitis Disposition: HOME SELF-CARE Instructions (If sedation given, give patient instructions): Acute Bronchitis (ED) Additional Instructions: Return to the emergency department with any new, worsening, or concerning symptoms. Take the antibiotic as prescribed for 5 days. Take the Prednisone daily for 5 days. You can take the cough medicine every 4-6 hours as needed, however this may make you drowsy and you should take it at night until you know how it affects you. Follow up with your primary care provider in 1-2 days. Prescriptions: predniSONE 50 mg PO DAILY 5 Days #5 tab Promethazine/Dextromethorphan [Promethazine-Dm Syrup] 5 ml PO Q4-6H PRN #473 ml PRN Reason: Cough Azithromycin [Zithromax] 250 mg PO DIRECTED 5 Days #6 tab Is patient prescribed a controlled substance at d/c from ED?: No Referrals: [facility],Clinic [Primary Care Provider] - 1-2 days
[2022-06-14 15:20] VITALS: BP 128/77; PULSE 78; TEMP 98.4
== END 2022-06-14 15:20 | disposition home or self-care (01) ==
LOC: EC 12:59
DX: J40 Bronchitis, not specified as acute or chronic (principal); F41.9 Anxiety disorder, unspecified; F32.A Depression, unspecified; F17.290 Nicotine dependence, other tobacco product, uncomplicated; Z88.6 Allergy status to analgesic agent; Z79.899 Other long term (current) drug therapy; Z20.822 Contact with and (suspected) exposure to COVID-19
CPT/HCPCS: 71046; 87636; 99283

== ENCOUNTER 2022-10-25 02:17 | Emergency (ER) | payer OTHER ==
[2022-10-25] MEDS ORDERED: KETOROLAC 15 MG/ML 1 ML VIAL IM STA (03:50)
--- NOTE | 2022-10-25 03:52 | ED ---
General Adult HPI - General Chief complaint: Extremity Problem,Nontraumatic Stated complaint: PAIN IN RIGHT SHOULDER Time Seen by Provider: 10/25/22 03:22 Source: patient Mode of arrival: ambulatory Limitations: no limitations - History of Present Illness Initial comments: This is a 26-year-old male with a past medical history including chronic hip issues presents emergency department for right shoulder strain. The patient stated that he was at work last week when he reached up and noted pain in the right shoulder. The patient then stated that he took medications at home and it did improve however was back at work today when he reached up and had continued pain in the right shoulder. The patient reported chronic issues with his right shoulder but stated that is worse over last several days and worsening today. The patient did present from his work for evaluation. [facility]. The patient also has an established follow-up with his orthopedic surgeon and [facility]. The patient denied any direct trauma to the shoulder and denied any other acute pain or complaints at this time. - Related Data Home Medications Medication Instructions Recorded Confirmed Albuterol Inhaler [Ventolin Hfa 1 - 2 puff INHALATION RT-Q6H PRN 12/22/17 12/22/17 Inhaler] Levocetirizine Dihydrochloride 5 mg PO HS 12/22/17 12/22/17 [Xyzal] Previous Rx's Medication Instructions Recorded Ibuprofen [Motrin] 600 mg PO Q8HR PRN #30 tab 12/23/17 Azithromycin [Zithromax] 250 mg PO DIRECTED 5 Days #6 tab 06/14/22 Promethazine/Dextromethorphan 5 ml PO Q4-6H PRN #473 ml 06/14/22 [Promethazine-Dm Syrup] predniSONE 50 mg PO DAILY 5 Days #5 tab 06/14/22 Allergies Allergy/AdvReac Type Severity Reaction Status Date / Time meloxicam Allergy Anaphylaxis Verified 10/25/22 02:57 Review of Systems ROS Statement: Those systems with pertinent positive or pertinent negative responses have been documented in the HPI. ROS Other: All systems not noted in ROS Statement are negative. Past Medical History Past Medical History: Asthma, Pneumonia Additional Past Medical History / Comment(s): Childhood asthma, mononucleosis, hypoglycemia, frequent migraines. History of Any Multi-Drug Resistant Organisms: None Reported Past Surgical History: Ear Surgery Additional Past Surgical History / Comment(s): Bilateral myringotomy/tubes. Past Anesthesia/Blood Transfusion Reactions: No Reported Reaction Past Psychological History: Anxiety, Depression Smoking Status: Current every day smoker, Vaper Past Alcohol Use History: None Reported Past Drug Use History: None Reported - Past Family History Mother Family Medical History: Asthma, Hypertension Father Family Medical History: Hypertension Additional Family Medical History / Comment(s): Father in a work related MVA. General Exam Limitations: no limitations General appearance: alert, in no apparent distress Head exam: Present: atraumatic, normocephalic, normal inspection Eye exam: Present: normal appearance, PERRL Pupils: Present: normal accommodation ENT exam: Present: normal exam, normal oropharynx, mucous membranes moist Neck exam: Present: normal inspection, full ROM Respiratory exam: Present: normal lung sounds bilaterally Cardiovascular Exam: Present: regular rate, normal rhythm, normal heart sounds GI/Abdominal exam: Present: soft, normal bowel sounds Extremities exam: Present: tenderness (Tenderness noted to the anterior right shoulder with decreased range of motion secondary to pain.) Back exam: Present: normal inspection, full ROM Neurological exam: Present: alert, oriented X3, CN II-XII intact Psychiatric exam: Present: normal affect, normal mood Skin exam: Present: warm, dry Course Vital Signs 10/25/22 02:57 Temperature 98.1 F Pulse Rate 82 Respiratory 16 Rate Blood Pressure 148/95 O2 Sat by Pulse 98 Oximetry Medical Decision Making - Medical Decision Making Was pt. sent in by a medical professional or institution (, PA, OCCUPATIONAL THERAPIST PER DIEM, urgent care, hospital, or senior living...) When possible be specific @ -No Did you speak to anyone other than the patient for history (EMS, parent, family, police, friend...)? What history was obtained from this source @ -No Did you review nursing and triage notes (agree or disagree)? Why? @ -I reviewed and agree with nursing and triage notes Were old charts reviewed (outside hosp., previous admission, EMS record, old EKG, old radiological studies, urgent care reports/EKG's, senior living records)? Report findings @ -No old charts were reviewed Differential Diagnosis (chest pain, altered mental status, abdominal pain women, abdominal pain men, vaginal bleeding, weakness, fever, dyspnea, syncope, headache, dizziness, GI bleed, back pain, seizure, CVA, palpatations, mental health)? @ -Acute shoulder strain, rotator cuff injury, tendon injury EKG interpreted by me (3pts min.). @ -None X-rays interpreted by me (1pt min.). @ -None done CT interpreted by me (1pt min.). @ -None done U/S interpreted by me (1pt. min.). @ -None done What testing was considered but not performed or refused? (CT, X-rays, U/S, labs)? Why? @ -A shoulder x-ray was considered however the patient denied of any direct trauma and was able to move the shoulder therefore was unlikely to show any abnormality. What meds were considered but not given or refused? Why? @ -None Did you discuss the management of the patient with other professionals (professionals i.e. , PA, OCCUPATIONAL THERAPIST PER DIEM, lab, RT, psych nurse, social services manager, event marketing specialist, teacher, loan review officer, special education case manager)? Give summary @ -No Was smoking cessation discussed for >3mins.? @ -No Was critical care preformed (if so, how long)? @ -No Were there social determinants of health that impacted care today? How? (Homelessness, low income, unemployed, alcoholism, drug addiction, transportation, low edu. Level, literacy, decrease access to med. care, longterm, rehab)? @ -No Was there de-escalation of care discussed even if they declined (Discuss DNR or withdrawal of care, Hospice)? DNR status @ -No What co-morbidities impacted this encounter? (DM, HTN, Smoking, COPD, CAD, Cancer, CVA, ARF, Chemo, Hep., AIDS, mental health diagnosis, sleep apnea, morbid obesity)? @ -None Was patient admitted / discharged? Hospital course, mention meds given and route, prescriptions, significant lab abnormalities, going to OR and other pertinent info. @ -The patient was seen and evaluated emergency department. Physical exam, the patient was resting in bed without any acute distress. Vital signs admission were stable. The patient was advised that an x-ray would likely show no abnormalities and he did require an MRI. The patient did have follow-up with orthopedic surgeon however was given follow-up with an orthopedic surgeon in the local area. The patient was given a dose of Toradol. The patient did state that he had multiple medications at home and he did not require any further medications at this time. The patient was agreeable to this plan and he did receive a work note per his request. The patient was discharged home in stable condition. Undiagnosed new problem with uncertain prognosis? @ -No Drug Therapy requiring intensive monitoring for toxicity (Heparin, Nitro, Insulin, Cardizem)? @ -No Were any procedures done? @ -No Diagnosis/symptom? @ -Right shoulder strain Acute, or Chronic, or Acute on Chronic? @ -Chronic Uncomplicated (without systemic symptoms) or Complicated (systemic symptoms)? @ -Uncomplicated Side effects of treatment? @ -No Exacerbation, Progression, or Severe Exacerbation? @ -No Poses a threat to life or bodily function? How? (Chest pain, [place], [place], pneumonia, PE, COPD, DKA, ARF, appy, cholecystitis, CVA, Diverticulitis, Homicidal, Suicidal, threat to staff... and all critical care pts) @ -No Disposition Clinical Impression: Right shoulder strain Disposition: HOME SELF-CARE Condition: Stable Instructions (If sedation given, give patient instructions): Shoulder Pain (ED) Is patient prescribed a controlled substance at d/c from ED?: No Referrals: [facility],Clinic [Primary Care Provider] - 1-2 days Larry Zimmerman MD [Medical Doctor] - 1-2 days Time of Disposition: 03:45
[2022-10-25 04:52] VITALS: BP 126/83; PULSE 57; RESP 20; TEMP 98.7
== END 2022-10-25 05:08 | disposition home or self-care (01) ==
LOC: EC 02:17
DX: S46.911A Strain of unspecified muscle, fascia and tendon at shoulder and upper arm level, right arm, initial encounter (principal); J45.909 Unspecified asthma, uncomplicated; F41.9 Anxiety disorder, unspecified; F32.A Depression, unspecified; F17.290 Nicotine dependence, other tobacco product, uncomplicated; Z79.899 Other long term (current) drug therapy; Z88.8 Allergy status to other drugs, medicaments and biological substances; X58.XXXA Exposure to other specified factors, initial encounter
CPT/HCPCS: 99283; 96372; J1885

== ENCOUNTER 2023-09-10 12:34 | Emergency (ER) | payer OTHER ==
--- NOTE | 2023-09-10 12:50 | ED ---
General Adult HPI <Lisa Hill - Last Filed: 09/10/23 14:25> - General Source: patient, RN notes reviewed Mode of arrival: ambulatory Limitations: no limitations <Nissa Dawkins - Last Filed: 09/10/23 17:16> - General Stated complaint: L Finger Injury Time Seen by Provider: 09/10/23 12:50 - History of Present Illness Initial comments: 27-year-old male presenting to the ER with a chief complaint of laceration infection. Patient reports on 09/01/23 he cut his left middle finger with a razor while cutting a hose. He was seen at [facility] and received 4 stitches. He states for the past couple days he had increasing redness and purulent drainage. Denies any fevers, chills, limited range of motion or other compla ints. Patient reports his last tetanus vaccination was in 2018. (Nissa Dawkins) - Related Data Home Medications Medication Instructions Recorded Confirmed Albuterol Inhaler [Ventolin Hfa 1 - 2 puff INHALATION RT-Q6H PRN 12/22/17 12/22/17 Inhaler] Levocetirizine Dihydrochloride 5 mg PO HS 12/22/17 12/22/17 [Xyzal] Previous Rx's Medication Instructions Recorded Ibuprofen [Motrin] 600 mg PO Q8HR PRN #30 tab 12/23/17 Azithromycin [Zithromax] 250 mg PO DIRECTED 5 Days #6 tab 06/14/22 Promethazine/Dextromethorphan 5 ml PO Q4-6H PRN #473 ml 06/14/22 [Promethazine-Dm Syrup] predniSONE 50 mg PO DAILY 5 Days #5 tab 06/14/22 Cephalexin [Keflex] 500 mg PO Q6HR #40 cap 09/10/23 Allergies Allergy/AdvReac Type Severity Reaction Status Date / Time meloxicam Allergy Anaphylaxis Verified 09/10/23 13:25 Review of Systems ROS Other: All systems not noted in ROS Statement are negative. <Lisa Hill - Last Filed: 09/10/23 14:25> ROS Other: All systems not noted in ROS Statement are negative. <Nissa Dawkins - Last Filed: 09/10/23 17:16> ROS Statement: Those systems with pertinent positive or pertinent negative responses have been documented in the HPI. Past Medical History Past Medical History: Asthma, Pneumonia Additional Past Medical History / Comment(s): Childhood asthma, mononucleosis, hypoglycemia, frequent migraines. History of Any Multi-Drug Resistant Organisms: None Reported Past Surgical History: Ear Surgery Additional Past Surgical History / Comment(s): Bilateral myringotomy/tubes. Past Anesthesia/Blood Transfusion Reactions: No Reported Reaction Past Psychological History: Anxiety, Depression Smoking Status: Current every day smoker, Vaper Past Alcohol Use History: None Reported Past Drug Use History: None Reported - Past Family History Mother Family Medical History: Asthma, Hypertension Father Family Medical History: Hypertension Additional Family Medical History / Comment(s): Father in a work related MVA. <Nissa Dawkins - Last Filed: 09/10/23 17:16> General Exam General appearance: alert, in no apparent distress Head exam: Present: atraumatic, normocephalic, normal inspection Respiratory exam: Present: normal lung sounds bilaterally. Absent: respiratory distress, wheezes, rales, rhonchi, stridor Cardiovascular Exam: Present: regular rate, normal rhythm, normal heart sounds. Absent: systolic murmur, diastolic murmur, rubs, gallop, clicks Neurological exam: Present: alert, oriented X3, CN II-XII intact Skin exam: Present: other (2 cm healing laceration to left third digit. 4 simple [address]ures in place. Surrounding erythema and edema. Patient has full active range of motion. Less than 3 seconds cap refill. Station intact) <Nissa Dawkins - Last Filed: 09/10/23 17:16> - General Exam Comments Initial Comments: Visual Physical Exam Vital signs reviewed General: Well-appearing, nontoxic, no acute distress. Head: Normocephalic, atraumatic Eyes: PERRLA, EOMI ENT: Airway patent Chest: Nonlabored breathing Skin: No visual rash, normal skin tone Neuro: Alert and oriented 3 Musculoskeletal: 4 simple interrupted sutures and right third digit. Surrounding erythema and edema (Nissa Dawkins) Course Vital Signs 09/10/23 13:22 Temperature 97.8 F Pulse Rate 81 Respiratory 18 Rate Blood Pressure 149/89 O2 Sat by Pulse 98 Oximetry Medical Decision Making <Nissa Dawkins - Last Filed: 09/10/23 17:16> - Medical Decision Making Was pt. sent in by a medical professional or institution (KORTNEY Pena, ROUGHER OPERATOR, urgent care, hospital, or assisted...) When possible be specific @ -No Did you speak to anyone other than the patient for history (EMS, parent, family, police, friend...)? What history was obtained from this source @ -No Did you review nursing and triage notes (agree or disagree)? Why? @ -I reviewed and agree with nursing and triage notes Were old charts reviewed (outside hosp., previous admission, EMS record, old EKG, old radiological studies, urgent care reports/EKG's, assisted records)? Report findings @ -No old charts were reviewed Differential Diagnosis (chest pain, altered mental status, abdominal pain women, abdominal pain men, vaginal bleeding, weakness, fever, dyspnea, syncope, headache, dizziness, GI bleed, back pain, seizure, CVA, palpatations, mental health, musculoskeletal)? @ -Cellulitis, foreign body, laceration this list has not been to be all- inclusive EKG interpreted by me (3pts min.). @ -None X-rays interpreted by me (1pt min.). @ -None done CT interpreted by me (1pt min.). @ -None done U/S interpreted by me (1pt. min.). @ -None done What testing was considered but not performed or refused? (CT, X-rays, U/S, labs)? Why? @ -None What meds were considered but not given or refused? Why? @ -None Did you discuss the management of the patient with other professionals (professionals i.e. KORTNEY Pena, ROUGHER OPERATOR, lab, RT, psych nurse, licensed clinical social worker, spring forger, teacher, driver's license reviewing officer, welfare case worker)? Give summary @ -No Was smoking cessation discussed for >3mins.? @ -No Was critical care preformed (if so, how long)? @ -No Were there social determinants of health that impacted care today? How? (Homelessness, low income, unemployed, alcoholism, drug addiction, transportation, low edu. Level, literacy, decrease access to med. care, senior care, rehab)? @ -No Was there de-escalation of care discussed even if they declined (Discuss DNR or withdrawal of care, Hospice)? DNR status @ -No What co-morbidities impacted this encounter? (DM, HTN, Smoking, COPD, CAD, Cancer, CVA, ARF, Chemo, Hep., AIDS, mental health diagnosis, sleep apnea, morbid obesity)? @ -None Was patient admitted / discharged? Hospital course, mention meds given and route, prescriptions, significant lab abnormalities, going to OR and other pertinent info. @ -Discharge. 27-year-old male presenting to the ER with chief complaint of laceration infection. History and physical exam completed. Vitals stable. Patient no signs of acute distress and nontoxic-appearing. 2 cm healing laceration with 4 simple interrupted sutures intact. Surrounding erythema and edema to laceration. Sutures removed. Keflex prescribed. Strict return parameters discussed. Patient discharged stable condition with follow-up to PCP. Patient expressed verbal understanding and agreement with care plan. Case discussed with ED attending, Dr. Novak. Undiagnosed new problem with uncertain prognosis? @ -No Drug Therapy requiring intensive monitoring for toxicity (Heparin, Nitro, Insulin, Cardizem)? @ -No Were any procedures done? @ -No Diagnosis/symptom? @ -Cellulitis Acute, or Chronic, or Acute on Chronic? @ -Acute Uncomplicated (without systemic symptoms) or Complicated (systemic symptoms)? @ -Uncomplicated Side effects of treatment? @ -No Exacerbation, Progression, or Severe Exacerbation? @ -No Poses a threat to life or bodily function? How? (Chest pain, [place], [place], pneumonia, PE, COPD, DKA, ARF, appy, cholecystitis, CVA, Diverticulitis, Homicidal, Suicid al, threat to staff... and all critical care pts) @ -No (Nissa Dawkins) Disposition <Lisa Hill - Last Filed: 09/10/23 14:25> Is patient prescribed a controlled substance at d/c from ED?: No Time of Disposition: 13:42 <Nissa Dawkins - Last Filed: 09/10/23 17:16> Clinical Impression: Cellulitis Disposition: HOME SELF-CARE Condition: Stable Instructions (If sedation given, give patient instructions): Cellulitis (ED) Additional Instructions: Complete full course of antibiotics. Return to the ER for any new or worse concerns. Prescriptions: Cephalexin [Keflex] 500 mg PO Q6HR #40 cap Referrals: None,Stated [REFERRING] - 1-2 days
[2023-09-10 14:03] VITALS: BP 149/89; PULSE 81; RESP 18; TEMP 97.8
== END 2023-09-10 14:00 | disposition home or self-care (01) ==
LOC: EC 12:34
DX: S61.213A Laceration without foreign body of left middle finger without damage to nail, initial encounter (principal); L03.012 Cellulitis of left finger; F17.290 Nicotine dependence, other tobacco product, uncomplicated; Z88.6 Allergy status to analgesic agent; W26.8XXA Contact with other sharp object(s), not elsewhere classified, initial encounter
CPT/HCPCS: 99282

== ENCOUNTER 2024-08-25 16:58 | Emergency (ER) | payer OTHER ==
--- NOTE | 2024-08-25 17:50 | ED ---
General Adult HPI - General Chief complaint: Wound/Laceration Stated complaint: left pinky laceration Time Seen by Provider: 08/25/24 17:30 Source: patient, RN notes reviewed Mode of arrival: ambulatory Limitations: no limitations - History of Present Illness Initial comments: 28-year-old male presents to the emergency department for evaluation of left fifth finger injury. Patient states that he fell and cut his finger on a machete. He states that he did not have any other injury. He notes a laceration to the distal fifth finger of the left hand. He is up-to-date on a tetanus vaccine. - Related Data Home Medications Medication Instructions Recorded Confirmed Albuterol Inhaler [Ventolin Hfa 1 - 2 puff INHALATION RT-Q6H PRN 12/22/17 12/22/17 Inhaler] Levocetirizine Dihydrochloride 5 mg PO HS 12/22/17 12/22/17 [Xyzal] Previous Rx's Medication Instructions Recorded Ibuprofen [Motrin] 600 mg PO Q8HR PRN #30 tab 12/23/17 Azithromycin [Zithromax] 250 mg PO DIRECTED 5 Days #6 tab 06/14/22 Promethazine/Dextromethorphan 5 ml PO Q4-6H PRN #473 ml 06/14/22 [Promethazine-Dm Syrup] predniSONE 50 mg PO DAILY 5 Days #5 tab 06/14/22 Cephalexin [Keflex] 500 mg PO Q6HR #40 cap 09/10/23 Allergies Allergy/AdvReac Type Severity Reaction Status Date / Time meloxicam Allergy Anaphylaxis Verified 08/25/24 17:29 Review of Systems ROS Statement: Those systems with pertinent positive or pertinent negative responses have been documented in the HPI. ROS Other: All systems not noted in ROS Statement are negative. Past Medical History Past Medical History: Asthma, Pneumonia Additional Past Medical History / Comment(s): Childhood asthma, mononucleosis, hypoglycemia, frequent migraines. History of Any Multi-Drug Resistant Organisms: None Reported Past Surgical History: Ear Surgery Additional Past Surgical History / Comment(s): Bilateral myringotomy/tubes. Past Anesthesia/Blood Transfusion Reactions: No Reported Reaction Past Psychological History: Anxiety, Depression Smoking Status: Current every day smoker, Vaper Past Alcohol Use History: None Reported Past Drug Use History: None Reported - Past Family History Mother Family Medical History: Asthma, Hypertension Father Family Medical History: Hypertension Additional Family Medical History / Comment(s): Father in a work related MVA. General Exam Limitations: no limitations General appearance: alert, in no apparent distress Head exam: Present: atraumatic, normocephalic, normal inspection Eye exam: Present: normal appearance, PERRL, EOMI. Absent: scleral icterus, conjunctival injection, periorbital swelling Respiratory exam: Present: normal lung sounds bilaterally. Absent: respiratory distress, wheezes, rales, rhonchi, stridor Cardiovascular Exam: Present: regular rate, normal rhythm, normal heart sounds. Absent: systolic murmur, diastolic murmur, rubs, gallop, clicks Extremities exam: Present: full ROM, normal capillary refill, other (Normal capillary refill, laceration 0.5 cm on the medial aspect of the left hand fifth digit distally). Absent: tenderness, pedal edema, joint swelling, calf tenderness Neurological exam: Present: alert, oriented X3 Psychiatric exam: Present: normal affect, normal mood Skin exam: Present: warm, dry. Absent: intact (See above) Course Vital Signs 08/25/24 17:26 Temperature 98.2 F Pulse Rate 84 Respiratory 17 Rate Blood Pressure 146/88 O2 Sat by Pulse 100 Oximetry Procedures - Laceration Laceration #1 Consent Obtained: verbal consent Indication: laceration Site: hand Size (cm): 1 Description: linear Depth: simple, single layer Anesthetic Used: lidocaine 1% Anesthesia Technique: nerve block Pre-repair: wound explored Type of Sutures: other Size of Sutures: 5-0 Number of Sutures: 2 Technique: simple, interrupted Patient Tolerated Procedure: well, no complications Medical Decision Making - Medical Decision Making Was pt. sent in by a medical professional or institution (, PA, FINANCIAL LEGAL ASSISTANT, urgent care, hospital, or detention...) When possible be specific @ -No Did you speak to anyone other than the patient for history (EMS, parent, family, police, friend...)? What history was obtained from this source @ -No Did you review nursing and triage notes (agree or disagree)? Why? @ -I reviewed and agree with nursing and triage notes Were old charts reviewed (outside hosp., previous admission, EMS record, old EKG, old radiological studies, urgent care reports/EKG's, detention records)? Report findings @ -No old charts were reviewed Differential Diagnosis (chest pain, altered mental status, abdominal pain women, abdominal pain men, vaginal bleeding, weakness, fever, dyspnea, syncope, headache, dizziness, GI bleed, back pain, seizure, CVA, palpatations, mental health, musculoskeletal)? @ -Laceration, abrasion, fracture, this is not all inclusive EKG interpreted by me (3pts min.). @ -None X-rays interpreted by me (1pt min.). @ -None done CT interpreted by me (1pt min.). @ -None done U/S interpreted by me (1pt. min.). @ -None done What testing was considered but not performed or refused? (CT, X-rays, U/S, labs)? Why? @ -None What meds were considered but not given or refused? Why? @ -None Did you discuss the management of the patient with other professionals (professionals i.e. , PA, FINANCIAL LEGAL ASSISTANT, lab, RT, psych nurse, social media strategist, glass bulb silverer, teacher, preventive medicine officer, case filler)? Give summary @ -No Was smoking cessation discussed for >3mins.? @ -No Was critical care preformed (if so, how long)? @ -No Were there social determinants of health that impacted care today? How? (Homelessness, low income, unemployed, alcoholism, drug addiction, transportation, low edu. Level, literacy, decrease access to med. care, assisted, rehab)? @ -No Was there de-escalation of care discussed even if they declined (Discuss DNR or withdrawal of care, Hospice)? DNR status @ -No What co-morbidities impacted this encounter? (DM, HTN, Smoking, COPD, CAD, Cancer, CVA, ARF, Chemo, Hep., AIDS, mental health diagnosis, sleep apnea, morbid obesity)? @ -None Was patient admitted / discharged? Hospital course, mention meds given and route, prescriptions, significant lab abnormalities, going to OR and other pertinent info. @ -Discharge. Patient presented emergency department for evaluation of finger laceration. The wound was cleaned. Digital block was performed. Laceration was repaired. Advised on wound care and suture removal time. He is understanding agreeable with this plan. Patient stable for discharge. Case discussed with Dr. Gonzalez Undiagnosed new problem with uncertain prognosis? @ -No Drug Therapy requiring intensive monitoring for toxicity (Heparin, Nitro, Insulin, Cardizem)? @ -No Were any procedures done? @ -No Diagnosis/symptom? @ -Laceration Acute, or Chronic, or Acute on Chronic? @ -Acute Uncomplicated (without systemic symptoms) or Complicated (systemic symptoms)? @ -Uncomplicated Side effects of treatment? @ -No Exacerbation, Progression, or Severe Exacerbation? @ -No Poses a threat to life or bodily function? How? (Chest pain, [place], [place], pneumonia, PE, COPD, DKA, ARF, appy, cholecystitis, CVA, Diverticulitis, Homicidal, Suicidal, threat to staff... and all critical care pts) @ -No Disposition Clinical Impression: Laceration Disposition: HOME SELF-CARE Condition: Stable Instructions (If sedation given, give patient instructions): Care For Your Stitches (ED) Additional Instructions: Please keep wound clean and dry Be on the look out for signs of infection including redness, discharge, increased pain. Please follow-up with your primary care provider. Return to the emergency department for new or worsening symptoms. Is patient prescribed a controlled substance at d/c from ED?: No Referrals: Garfield Castellano DO [Primary Care Provider] - 1-2 days
[2024-08-25] MEDS: LIDOCAINE 1% INJ 10MG/ML (20 ML MDV) SQ ONE (17:53)
[2024-08-25 19:48] VITALS: BP 129/78; PULSE 92; RESP 18; TEMP 98.5
== END 2024-08-25 20:09 | disposition home or self-care (01) ==
LOC: EC 16:58
DX: S61.217A Laceration without foreign body of left little finger without damage to nail, initial encounter (principal); F17.290 Nicotine dependence, other tobacco product, uncomplicated; Z88.8 Allergy status to other drugs, medicaments and biological substances; W26.8XXA Contact with other sharp object(s), not elsewhere classified, initial encounter
CPT/HCPCS: 12001; 99282; J2003